=== PATIENT | male | born 1945 | race Caucasian/White ===

== ENCOUNTER 2019-05-02 10:03 | Outpatient (CLI) | payer MEDICARE, BC ==
[2019-05-02 10:50] LABS: CREATININE 1.1 mg/dL (0.6-1.3)
[2019-05-02] MEDS ORDERED: IV NS 0.9% 250 ML IV ONE (11:20)
[2019-05-02] MEDS ORDERED: IOHEXOL-300 100 ML VIAL IV ONE (11:20)
[2019-05-02] MEDS ORDERED: CT SWABBABLE VALVE TRANS SET 1 EA INFUS.SET MC ONE (11:21)
== END 2019-05-02 23:59 | disposition home or self-care (01) ==
LOC: CT 10:03
PROVIDERS: ATTEND Family Medicine
DX: I71.4 Abdominal aortic aneurysm, without rupture (principal); I70.0 Atherosclerosis of aorta; I72.3 Aneurysm of iliac artery; I21.9 Acute myocardial infarction, unspecified; K76.89 Other specified diseases of liver; J43.8 Other emphysema; R09.89 Other specified symptoms and signs involving the circulatory and respiratory systems; M47.819 Spondylosis without myelopathy or radiculopathy, site unspecified; M81.0 Age-related osteoporosis without current pathological fracture
CPT/HCPCS: 36415; 74178; 82565; 84520; J7050; Q9967

== ENCOUNTER 2020-11-25 14:45 | Outpatient (CLI) | payer MEDICARE, BC ==
[2020-11-25] MEDS ORDERED: Z GUARD REMEDY 2 OZ OINT TP ONE (15:33)
== END 2020-11-25 23:59 | disposition home health service (06) ==
LOC: WOU 14:45
PROVIDERS: ATTEND Surgery
DX: T81.89XA Other complications of procedures, not elsewhere classified, initial encounter (principal); I48.91 Unspecified atrial fibrillation; Z87.891 Personal history of nicotine dependence
CPT/HCPCS: 11043

== ENCOUNTER 2020-12-02 13:50 | Outpatient (CLI) | payer MEDICARE, BC | END 2020-12-02 23:59 | disposition home health service (06) | LOC: WOU 13:50 | PROVIDERS: ATTEND Surgery | DX: T81.89XA Other complications of procedures, not elsewhere classified, initial encounter (principal); I48.91 Unspecified atrial fibrillation | CPT/HCPCS: 11043; A6407 ==

== ENCOUNTER 2020-12-09 14:10 | Outpatient (CLI) | payer MEDICARE, BC | END 2020-12-09 23:59 | disposition home health service (06) | LOC: WOU 14:10 | PROVIDERS: ATTEND Surgery | DX: T81.89XA Other complications of procedures, not elsewhere classified, initial encounter (principal); I48.91 Unspecified atrial fibrillation | CPT/HCPCS: 11043 ==

== ENCOUNTER 2020-12-16 13:45 | Outpatient (CLI) | payer MEDICARE, BC | END 2020-12-16 23:59 | disposition home health service (06) | LOC: WOU 13:45 | PROVIDERS: ATTEND Surgery | DX: T81.89XA Other complications of procedures, not elsewhere classified, initial encounter (principal); I48.91 Unspecified atrial fibrillation | CPT/HCPCS: 11043 ==

== ENCOUNTER 2020-12-23 13:40 | Outpatient (CLI) | payer MEDICARE, BC | END 2020-12-23 23:59 | disposition home health service (06) | LOC: WOU 13:40 | PROVIDERS: ATTEND Surgery | DX: T81.89XA Other complications of procedures, not elsewhere classified, initial encounter (principal); I48.91 Unspecified atrial fibrillation | CPT/HCPCS: 11043 ==

== ENCOUNTER 2021-01-06 13:50 | Outpatient (CLI) | payer MEDICARE, BC | END 2021-01-06 23:59 | disposition home health service (06) | LOC: WOU 13:50 | PROVIDERS: ATTEND Surgery | DX: T81.89XA Other complications of procedures, not elsewhere classified, initial encounter (principal); L98.495 Non-pressure chronic ulcer of skin of other sites with muscle involvement without evidence of necrosis; I48.91 Unspecified atrial fibrillation | CPT/HCPCS: 15271; Q4186 ×2 ==

== ENCOUNTER 2021-01-13 14:15 | Outpatient (CLI) | payer MEDICARE, BC ==
[2021-01-13] MEDS ORDERED: LIDOCAINE 2% JEL 5 ML TUBE ONE (14:28)
== END 2021-01-13 23:59 | disposition home health service (06) ==
LOC: WOU 14:15
PROVIDERS: ATTEND Surgery
DX: T81.89XA Other complications of procedures, not elsewhere classified, initial encounter (principal); L98.495 Non-pressure chronic ulcer of skin of other sites with muscle involvement without evidence of necrosis; I48.91 Unspecified atrial fibrillation
CPT/HCPCS: 15271; Q4196

== ENCOUNTER 2021-01-20 14:00 | Outpatient (CLI) | payer MEDICARE, BC | END 2021-01-20 23:59 | disposition home health service (06) | LOC: WOU 14:00 | PROVIDERS: ATTEND Surgery | DX: T81.89XA Other complications of procedures, not elsewhere classified, initial encounter (principal); L98.495 Non-pressure chronic ulcer of skin of other sites with muscle involvement without evidence of necrosis; I48.91 Unspecified atrial fibrillation | CPT/HCPCS: 15271; Q4196 ==

== ENCOUNTER 2021-01-27 14:15 | Outpatient (CLI) | payer MEDICARE, BC ==
[2021-01-27] MEDS ORDERED: COLLAGENASE 5 GM TUBE UD TP ONE (14:38)
== END 2021-01-27 23:59 | disposition home health service (06) ==
LOC: WOU 14:15
PROVIDERS: ATTEND Surgery
DX: T81.89XA Other complications of procedures, not elsewhere classified, initial encounter (principal); I48.91 Unspecified atrial fibrillation
CPT/HCPCS: 11043

== ENCOUNTER → 2021-02-06 | Outpatient (CLI) | payer MEDICARE, BC | END | disposition home health service (06) | LOC: WOU 09:45 | PROVIDERS: ATTEND Surgery | DX: T81.89XA Other complications of procedures, not elsewhere classified, initial encounter (principal); I48.91 Unspecified atrial fibrillation | CPT/HCPCS: 11043 ==

== ENCOUNTER 2021-03-05 09:30 | Outpatient (CLI) | payer MEDICARE, BC ==
[2021-03-05] MEDS ORDERED: LIDOCAINE 2% JEL 5 ML TUBE ONE (09:49)
== END 2021-03-05 23:59 | disposition home or self-care (01) ==
LOC: WOU 09:30
PROVIDERS: ATTEND Specialist
DX: T81.89XA Other complications of procedures, not elsewhere classified, initial encounter (principal); I48.19 Other persistent atrial fibrillation; Z87.891 Personal history of nicotine dependence
CPT/HCPCS: 11042; 87070; 87075; 87077; 87186; A6210

== ENCOUNTER 2021-03-12 10:00 | Outpatient (CLI) | payer MEDICARE, BC | END 2021-03-12 23:59 | disposition home health service (06) | LOC: WOU 10:00 | PROVIDERS: ATTEND Specialist | DX: T81.89XA Other complications of procedures, not elsewhere classified, initial encounter (principal); I48.19 Other persistent atrial fibrillation | CPT/HCPCS: 11042 ==

== ENCOUNTER 2021-03-19 10:00 | Outpatient (CLI) | payer MEDICARE, BC ==
[2021-03-19] MEDS ORDERED: LIDOCAINE 2% JEL 5 ML TUBE ONE (10:02)
== END 2021-03-19 23:59 | disposition home health service (06) ==
LOC: WOU 10:00
PROVIDERS: ATTEND Specialist
DX: T81.89XD Other complications of procedures, not elsewhere classified, subsequent encounter (principal); L05.01 Pilonidal cyst with abscess; B96.5 Pseudomonas (aeruginosa) (mallei) (pseudomallei) as the cause of diseases classified elsewhere; I48.19 Other persistent atrial fibrillation
CPT/HCPCS: G0463

== ENCOUNTER 2021-04-02 10:00 | Outpatient (CLI) | payer MEDICARE, BC ==
[~2021-04-02 10:00] MED LIST: LIDOCAINE 2% JEL 5 ML TUBE ONE
== END 2021-04-02 23:59 | disposition home health service (06) ==
LOC: WOU 10:00
PROVIDERS: ATTEND Specialist
DX: T81.89XA Other complications of procedures, not elsewhere classified, initial encounter (principal); L05.01 Pilonidal cyst with abscess; I48.19 Other persistent atrial fibrillation
CPT/HCPCS: 11042; 87070-TC; 87075-TC; 87186-TC

== ENCOUNTER 2021-04-09 10:00 | Outpatient (CLI) | payer MEDICARE, BC ==
[2021-04-09] MEDS ORDERED: LIDOCAINE SOLN 4% 50 ML BOTTLE ONE (10:10)
== END 2021-04-09 23:59 | disposition home health service (06) ==
LOC: WOU 10:00
PROVIDERS: ATTEND Specialist
DX: T81.89XA Other complications of procedures, not elsewhere classified, initial encounter (principal); L05.01 Pilonidal cyst with abscess; I48.19 Other persistent atrial fibrillation
CPT/HCPCS: 11042

== ENCOUNTER 2021-04-23 09:45 | Outpatient (CLI) | payer MEDICARE, BC ==
[2021-04-23] MEDS ORDERED: CADEXOMER IODINE UD 5 GM TUBE ONE (10:28)
[2021-04-23] MEDS ORDERED: SILVER NITRATE APPLICATOR 1 EA BOX ONE (10:32)
== END 2021-04-23 23:59 | disposition home health service (06) ==
LOC: WOU 09:45
PROVIDERS: ATTEND Specialist
DX: T81.89XA Other complications of procedures, not elsewhere classified, initial encounter (principal); L05.01 Pilonidal cyst with abscess; I48.19 Other persistent atrial fibrillation; B96.5 Pseudomonas (aeruginosa) (mallei) (pseudomallei) as the cause of diseases classified elsewhere; B95.7 Other staphylococcus as the cause of diseases classified elsewhere
CPT/HCPCS: 11042

== ENCOUNTER 2021-05-14 10:15 | Outpatient (CLI) | payer MEDICARE, BC ==
[2021-05-14] MEDS ORDERED: LIDOCAINE SOLN 4% 50 ML BOTTLE ONE (10:23)
== END 2021-05-14 23:59 | disposition home health service (06) ==
LOC: WOU 10:15
PROVIDERS: ATTEND Specialist
DX: T81.89XA Other complications of procedures, not elsewhere classified, initial encounter (principal); L05.01 Pilonidal cyst with abscess; I48.19 Other persistent atrial fibrillation; D75.839 Thrombocytosis, unspecified; Z87.891 Personal history of nicotine dependence
CPT/HCPCS: 11042